=== PATIENT | female | born 1940 | race Caucasian/White ===

== ENCOUNTER 2025-04-24 10:34 | Outpatient (CLI) | payer MEDICARE, BC ==
--- NOTE | 2025-04-24 12:07 | RADIOLOGY REPORT ---
Exam: US US NON VASCULAR Date: 04/24/2025 10:47 AM Clinical History: LOCALIZED SWELLING, MASS AND LUMP, LEFT UPPER LIMB Comparison: None Technique: Targeted sonographic evaluation of the soft tissues of the left forearm was obtained utilizing grayscale and color Doppler imaging. Findings/Impression: Superficial hypoechoic structure in the soft tissues of the left forearm measuring 1.3 x 0.6 cm with associated subcutaneous edema and skin thickening. Findings are indeterminate. Further evaluation with CT as indicated.
== END 2025-04-24 23:59 | disposition home or self-care (01) ==
LOC: RAD 10:34
PROVIDERS: ATTEND Physician Assistant
DX: R22.32 Localized swelling, mass and lump, left upper limb (principal)
CPT/HCPCS: 76882